=== PATIENT | male | born 1960 | race Two or more races ===

== ENCOUNTER 2019-02-17 14:24 | Inpatient (IN) | payer BC ==
[~2019-02-17] VITALS: Ht 170.2 cm; Wt 77.5 kg
[2019-02-17 15:09] LABS: Basophils # (auto) 0 uL; Basophils % (auto) 0.3 % (0.0-2.0); Eosinophils # (auto) 0 uL; Eosinophils % (auto) 0.5 % (0.0-7.0); Hematocrit 39.1 % (41.0-53.0); Hemoglobin 13.5 g/dL (13.5-17.5); Lymphocytes # (auto) 1.2 uL; Lymphocytes % (auto) 20.9 % (10.0-50.0); Mean Corpuscular Hemoglobin 31.7 pg (28.0-32.0); Mean Corpuscular Hgb Conc. 34.4 g/dL (32.0-36.0); Mean Corpuscular Volume 92.1 fL (80.0-100.0); Monocytes # (auto) 0.3 uL; Monocytes % (auto) 5.6 % (0.0-12.0); Neutrophils # (auto) 4.2 uL; Neutrophils % (auto) 72.7 % (37.0-80.0); Platelet Count (auto) 211 10^3/uL (140-450); Red Blood Cells 4.25 10^6/uL (4.5-5.90); Red Cell Distribution Width 12.6 % (11.8-14.3); White Blood Cell 5.8 10^3/uL (4.4-10.8)
[2019-02-17 15:17] LABS: Alanine Aminotransferase 21 U/L (16-61); Albumin 3.6 g/dL (3.4-5.0); Anion Gap 4 (5-15); Aspartate Aminotransferase 14 U/L (15-37); BUN/Creatinine Ratio 16.3; Blood Urea Nitrogen 16 mg/dL (7-18); Calcium 8.3 mg/dL (8.5-10.1); Carbon Dioxide 29 mmol/L (21-32); Chloride 108 mmol/L (98-107); GFR African American 100 mL/min; GFR Non-African American 83 mL/min; Glucose 98 mg/dL (74-106); Potassium 4.2 mmol/L (3.5-5.1); Sodium 141 mmol/L (136-145)
[2019-02-17 15:23] LABS: Alkaline Phosphatase 54 U/L (45-117); Bilirubin, Total 0.3 mg/dL (0.2-1.0); Total Protein 7.4 g/dL (6.4-8.2)
[2019-02-17 18:19] LABS: Urine Bacteria NONE SEEN /hpf (None Seen); Urine Blood Negative /uL (Negative); Urine Specific Gravity 1.018 (1.001-1.035); Urine Sperm PRESENT /hpf (None Seen); Urine WBC <1 /hpf (0 - 3)
[2019-02-17] MEDS ORDERED: ONDANSETRON HCL 4 MG/2 ML VIAL IV PRN (19:45)
[2019-02-17] MEDS ORDERED: ACETAMINOPHEN 500 MG TAB PO PRN (19:45)
[2019-02-17] MEDS ORDERED: NITROGLYCERIN 0.4 MG SL TAB SL PRN (19:45)
[2019-02-17] MEDS ORDERED: HYDROcodone-ACET 5/325MG TAB PO PRN (19:45)
[2019-02-17] MEDS ORDERED: MORPHINE SULF INJ 2 MG/ML SYRINGE 1ML IV PRN ×2 (19:45)
[2019-02-17] MEDS ORDERED: LORazepam 2MG/ML-1ML VIAL IV PRN (20:00)
[2019-02-17 20:29] LABS: Alcohol, Urine < 3.0 mg/dL (0-5); Amphetamine Screen, Urine NEGATIVE (NEGATIVE); Barbiturate Scree,Urine NEGATIVE (NEGATIVE); Benzodiazephine Screen, Urine NEGATIVE (NEGATIVE); Cannabinoid Screen, Urine NEGATIVE (NEGATIVE); Cocaine Screen, Urine NEGATIVE (NEGATIVE); Opiate Scree,Urine NEGATIVE (NEGATIVE); Phencyclidine Screen, Urine NEGATIVE (NEGATIVE)
[2019-02-17 20:30] LABS: Cholesterol 183 mg/dL (< 200); LDL Cholesterol 116 mg/dL (< 100); Triglycerides 164 mg/dL (< 150)
[2019-02-17 20:33] LABS: HDL Cholesterol 52 mg/dL (40-59)
[2019-02-17] MEDS: ATORVASTATIN 20 MG TAB PO SCH (22:30)
[2019-02-17 23:05] VITALS: BP 134/79
--- NOTE | 2019-02-17 23:05 | NUR ---
Telemetry admit from [facility] admitted to Telemetry unit. Patient oriented to MAGY CHAUHAN RN primary RN, unit, room, bed, and unit policies regarding patient care and visiting hours. Patient now on continuous telemetry monitoring, tele box #50 and telemetry reading on arrival to unit is . Patient placed on bedside oxygen, weighed by bedscale and encouraged to call if they need something. All questions and concerns addressed, patient verbalized understanding.
--- NOTE | 2019-02-18 03:16 | NUR ---
Rounds Patient in bed asleep with no signs of distress/sob/pain. Will continue to monitor Q1HPRN. Bed alarm on for safety.
[2019-02-18 05:00] VITALS: BP 118/72
[2019-02-18 05:58] LABS: Basophils # (auto) 0 uL; Basophils % (auto) 0.3 % (0.0-2.0); Eosinophils # (auto) 0.1 uL; Eosinophils % (auto) 1.6 % (0.0-7.0); Hematocrit 37.8 % (41.0-53.0); Lymphocytes # (auto) 1.5 uL; Mean Corpuscular Hemoglobin 31.7 pg (28.0-32.0); Mean Corpuscular Hgb Conc. 34.5 g/dL (32.0-36.0); Mean Corpuscular Volume 91.8 fL (80.0-100.0); Monocytes # (auto) 0.4 uL; Monocytes % (auto) 8.6 % (0.0-12.0); Neutrophils % (auto) 59.5 % (37.0-80.0); Nucleated Red Blood Cells % 0.1 %; Platelet Count (auto) 194 10^3/uL (140-450); Red Blood Cells 4.11 10^6/uL (4.5-5.90); Red Cell Distribution Width 12.9 % (11.8-14.3)
[2019-02-18 06:40] LABS: Albumin 3.2 g/dL (3.4-5.0); BUN/Creatinine Ratio 13.3; Calcium 8.1 mg/dL (8.5-10.1); Potassium 3.6 mmol/L (3.5-5.1); Total Protein 6.5 g/dL (6.4-8.2)
[2019-02-18 06:42] LABS: Bilirubin, Total 0.5 mg/dL (0.2-1.0)
--- NOTE | 2019-02-18 07:41 | NUR ---
Endorsed care to day shift RN.
--- NOTE | 2019-02-18 07:45 | NUR ---
Opening Note Received report from [facility] shift lead RN. Patient is awake, alert and oriented x4. No signs or symptoms of distress noted at this time. Patient is on room air, respirations even and unlabored. Patient denies pain at this time. Reviewed plan of care with patient, patient verbalized understanding. Bed in low and locked position, call light within reach. Will continue to monitorQ1 hour and PRN.
--- NOTE | 2019-02-18 07:50 | NUR ---
Patient ambulated Patient ambulated to restroom, gait steady. Patient denies shortness of breath or dizziness at this time. Will continue to monitor Q1 hour and PRN.
[2019-02-18 09:14] VITALS: BP 115/69
--- NOTE | 2019-02-18 09:33 | NUR ---
SIDEROGRAPHIST AT BEDSIDE
[2019-02-18] MEDS: ASPirin 81 mg TAB PO SCH (10:19)
[2019-02-18] MEDS: FAMOTIDINE 20 MG TAB PO SCH (10:19)
--- NOTE | 2019-02-18 10:20 | NUR ---
EEG at bedside
--- NOTE | 2019-02-18 10:30 | NUR ---
PT RECEIVING TEST. ATTEMPT P.T. LATER.
--- NOTE | 2019-02-18 11:05 | NUR ---
ELECTROENCEPHALOGRAM COMPLETED AT BEDSIDE. RN SUMMER NOTIFIED.
--- NOTE | 2019-02-18 11:32 | NUR ---
Dr. Gianna Smith at bedside Updating patient and family on plan of care. Will continue to monitor Q1 hour and PRN.
[2019-02-18 13:00] VITALS: BP 109/70
--- NOTE | 2019-02-18 16:37 | NUR ---
Assessment Pt is a 58 yr old alert and oriented pt. Pt mostly spoke Arabic so daughter at bedside translated. Pt lives with and kids at home. Prior to admit, pt was ambulatory, and independent with ADL's. Pt is currently employed. Pt came to hospital with lots of confusion and was disoriented, pt stated that they found fluid on his brain and they are doing tests to find out the cause. Pt stated that his is his POA and that family can transport him home. D/C plan to d/c home upon medical clearance. No current needs or concerns. Addendum: 02/18/19 at 1642 by ROBINA YATES Amended: Links added.
[2019-02-18 17:00] VITALS: BP 113/68
--- NOTE | 2019-02-18 17:57 | NUR ---
Family Contact Information Patient son Braulio Raza
--- NOTE | 2019-02-18 19:17 | NUR ---
Closing Note Report given to sash sticker RN. Family at bedside. No signs or symptoms of distress noted at this time.
--- NOTE | 2019-02-18 19:30 | NUR ---
Opening Shift Note Assumed care of patient, awake and alert x4. Family members noted at the bedside. Patient denies pain or shortness of breath at this time. Instructed on plan of care and to call for assistance as needed, patient verbalized understanding. Bed is locked in lowest position, side rails x 2 are up, call light is within reach, and bed alarm is on.
[2019-02-18] MEDS: ATORVASTATIN 20 MG TAB PO SCH (21:43)
[2019-02-18 21:52] VITALS: BP 113/69
[2019-02-19 05:42] VITALS: BP 110/86
--- NOTE | 2019-02-19 07:34 | NUR ---
OPENING SHIFT NOTE: PATIENT ASLEEP IN BED. RESPIRATIONS EVEN AND UNLABORED. BED IN LOWEST LOCKED POSITION. FLOOR FREE OF CLUTTER. CALL LIGHT WITHIN REACH. WILL CONTINUE TO MONITOR.
[2019-02-19 08:12] VITALS: BP 114/64
--- NOTE | 2019-02-19 08:32 | NUR ---
MD WYLIE AT BEDSIDE.
[2019-02-19] MEDS: ASPirin 81 mg TAB PO SCH (08:58)
[2019-02-19] MEDS: FAMOTIDINE 20 MG TAB PO SCH (08:58)
--- NOTE | 2019-02-19 10:50 | NUR ---
PT IS INDEPENDENT IN AMBULATION. PT DENIES NEED FOR P.T.
--- NOTE | 2019-02-19 11:53 | NUR ---
PATIENT DISCHARGED HOME, PATIENT LEFT WITH ALL BELONGINGS. TELE BOX RETURNED TO CARDIO UNIT. IV REMOVED MANUAL PRESSURE APPLIED. ALL EDUCATION MATERIALS GIVEN TO PATIENT. PATIENT AMBULATED OUT WITHOUT INCIDENTS.
== END 2019-02-19 11:50 | disposition home or self-care (01) | DRG 72 ==
LOC: EDBD 14:30 → ER 14:30 → TELE 14:31 → TELE-WESTW 23:07
PROVIDERS: ADMIT Nurse Practitioner Acute Care; ATTEND Family Medicine
DX: G45.4 Transient global amnesia (principal); E78.00 Pure hypercholesterolemia, unspecified
CPT/HCPCS: 36415; 70450; 70551; 80053; 80061; 80307; 81001; 82962; 83735; 84484; 85025; 93005; 93306; 93886; 95819; G0378